=== PATIENT | male | born 1965 | race Caucasian/White ===

== ENCOUNTER 2020-11-12 13:56 | Emergency (ER) | payer OTHER, SELFPAY ==
[2020-11-12 14:20] VITALS: BP 178/108; PULSE 74; RESP 18; TEMP 36.9; O2SAT 97
--- NOTE | 2020-11-12 14:34 | ECG_ITS ---
Measurements Intervals [place] Rate: 64 P: 60 TX: 164 QRS: 72 QRSD: 92 T: 48 QT: 402 QTc: 415 Interpretive Statements SINUS RHYTHM VOLTAGE CRITERIA FOR LVH BASELINE ARTIFACT- I, II, III, AVR, AVL, AVF, V1-V6 BORDERLINE ECG Electronically Signed On 11-12-2020 15:55:21 [facility] by Sawyer Bobo D.O.
--- NOTE | 2020-11-12 14:49 | ED.GENADULT ---
HPI - General Adult General Chief complaint: Dizziness Stated complaint: blood pressure elevated Time Seen by Provider: 11/12/20 13:57 Source: patient Mode of arrival: ambulatory Limitations: no limitations History of Present Illness HPI narrative: 55-year-old male presents to [facility] with complaints of episode of blurred vision, headache, floaters, shortness of breath and elevated blood pressure up to 210/100 last evening. Patient reports he was feeling some better this morning upon awakening but then while at work this afternoon, he started again with a headache, lethargy and generally just does not feel well. Patient is a smoker. Patient reports that 4 years ago he was started on a blood pressure medication but was instructed to stop taking the medication after 3 to 4 weeks. Patient reports that he attempted to call his primary care provider and was able to schedule an appointment in 2 weeks. Patient denies chest pain, fever, body aches, chills, nausea, vomiting or diarrhea. Onset (ago): hour(s) (12) Quality: aching Pain Consistency: constant Relieving factors: none Exacerbating factors: none Treatments prior to arrival: none Related Data Home Medications Medication Instructions Recorded Confirmed No Home Medications 11/12/20 11/12/20 Allergies Allergy/AdvReac Type Severity Reaction Status Date / Time No Known Allergies Allergy Verified 11/12/20 14:41 Review of Systems Constitutional: Constitutional: Denies chills, Denies fever(s) and Denies weakness Eyes: Eyes: Reports change in vision Comments: Blurred vision, floaters ENT: Denies dysphagia, Denies dizziness, Denies epistaxis and Denies sore throat Cardiovascular: Cardiovascular: Denies chest pain, Denies rapid heart rate, Denies radiating jaw, neck or arm pain and Denies slow heart rate Respiratory: Respiratory: Denies cough and Reports dyspnea Gastrointestinal: Gastrointestinal: Denies nausea and Denies vomiting Integumentary/Breasts: Skin/Breast: Denies rash Neurologic: Reports headache(s), Denies numbness and Denies weakness Endocrine: Endocrine: Denies polydipsia and Denies polyuria [facility] Past Medical History Medical History (Updated 11/12/20 @ 14:58 by Sandy Lopez APRN) Knee arthropathy Family History Family History (Updated 11/12/20 @ 14:53 by Sandy Lopez APRN) Mother Breast cancer Diabetes mellitus Social History Social History (Updated 11/12/20 @ 14:53 by Sandy Lopez, [employer]) Smoking status: Current every day smoker Comments At time of signature, I agree with nursing past medical, surgical, social and family history. There is no relevant family history pertinent to the presenting complaint. Exam Const: General: healthy appearing, no acute distress and alert Orientation/consciousness: patient oriented x3 Eyes: Conjunctivae: conjunctivae normal Pupils: Equal, round and reactive pupils present Neck: Neck: normal visual inspection Resp: Effort & Inspection: normal respiratory effort, not labored, not tachypneic and no use of accessory muscles Auscultation: clear to auscultation bilaterally and no wheezes Cardio: Rate: regular rate, not bradycardic and not tachycardic Rhythm: regular rhythm Heart sounds: no murmurs Skin: General skin exam: normal color, no jaundice and no pallor Rashes: no rashes Wounds: no wounds Neuro: General: patient oriented x3, moves all extremities, no meningeal signs and no focal motor deficits Speech: normal speech Gait exam (Neuro): Normal gait present Psych: Appearance: grossly normal Mental Status: mental status grossly normal Affect: normal affect Attitude: cooperative Thought content: Yes Normal thought content present Course Vital Signs Vital signs: Vital Signs Temperature 36.9 C 11/12/20 14:20 Pulse Rate 74 11/12/20 14:20 Respiratory Rate 18 11/12/20 14:20 Blood Pressure 178/108 H 11/12/20 14:20 Pulse Oximetry 97 11/12/20 14:20 Temp
== END 2020-11-12 14:59 | disposition short-term general hospital (02) ==
PROVIDERS: Emergency Provider Nurse Practitioner Family; PCP Family Medicine
DX: I10 Essential (primary) hypertension (principal); F17.200 Nicotine dependence, unspecified, uncomplicated
CPT/HCPCS: 93005; 99203; G0463

== ENCOUNTER 2020-11-12 15:09 | Emergency (ER) | payer OTHER, SELFPAY ==
--- NOTE | ~2020-11-12 | XR_ITS ---
EXAMINATION: XR chest 2V DATE: 11/12/2020 17:10 INDICATION: Hypertension TECHNIQUE: PA and lateral views of the chest are obtained. COMPARISON: None available FINDINGS: The lungs are free of acute opacities. There is no pleural effusion or pneumothorax. The ca rdiomediastinal silhouette is normal. The visualized bones and soft tissues are unremarkable. IMPRESSION: 1. No acute cardiopulmonary abnormality. Reviewed, dictated and finalized at location A. [employer]
--- NOTE | 2020-11-12 15:11 | ECG_ITS ---
Measurements Intervals [place] Rate: 64 P: 45 MD: 165 QRS: 74 QRSD: 98 T: 50 QT: 389 QTc: 403 Interpretive Statements SINUS RHYTHM MINIMAL Q WAVES- INFERIOR LEADS BASELINE ARTIFACT- II, III, AVR, AVL, AVF BORDERLINE ECG Electronically Signed On 11-13-2020 8:18:06 [employer] by Sawyer Bobo D.O.
[2020-11-12 16:40] VITALS: BP 211/88; PULSE 69; RESP 18; TEMP 36.2; O2SAT 98
[2020-11-12 16:56] LABS: Basophils Absolute Auto 0.1 K/mm3 (0.0-0.1); Basophils Percent Auto 0.6 % (0.2-1.2); Eosinophils Absolute Auto 0.2 K/mm3 (0-0.3); Eosinophils Percent Auto 2.3 % (0-4.4); Hematocrit 50.3 % (42.0-52.0); Immature Granulocyte Absolute 0.01 K/mm3 (0.00-0.031); Immature Granulocyte Percent A 0.1 % (0-0.5); Lymphocytes Absolute Auto 3.63 K/mm3 (0.9-3.2); Lymphocytes Percent Auto 47.1 % (18.3-44.2); Mean Corpuscular HGB Conc 33.8 g/dl (32-36); Mean Corpuscular Hemoglobin 29.4 pg (26-34); Mean Platelet Volume 9.4 fl (7.4-10.4); Monocytes Absolute Auto 0.6 K/mm3 (0.1-0.6); Monocytes Percent Auto 7.5 % (2.6-8.5); Neutrophils Absolute Auto 3.3 K/mm3 (1.3-6.7); Neutrophils Percent Auto 42.4 % (45.5-73.1); Platelet Count Result 305 k/mm3 (150-375); Red Blood Count 5.78 M/mm3 (4.6-6.20); Red Cell Distribution Width 12.8 % (11.5-14.5); White Blood Count 7.7 K/mm3 (4.5-10.0)
[2020-11-12 17:06] LABS: INR 0.9; Partial Thromboplastin Time 25.7 SECONDS (22.3-36.8); Prothrombin Time 12.4 Seconds (11.1-14.7)
[2020-11-12 17:08] LABS: Anion Gap 7 mmol/L (8-16); Blood Urea Nitrogen 14 mg/dL (9-20); Calcium 9.7 mg/dL (8.4-10.2); Carbon Dioxide 25 mmol/L (22-30); Chloride 106 mmol/L (98-107); Estimated CRCL calculation 102 ml/min; Estimated Glomerular Filt Rate > 60; Glucose 138 mg/dL (75-110); Potassium 4.2 mmol/L (3.4-5.0); Sodium 138 mmol/L (137-145)
[2020-11-12 17:20] LABS: Troponin I < 0.012 ng/mL (0.000-0.034)
[2020-11-12] MEDS: amLODIPine BESYLATE 5 MG TABLET 10 MG PO (18:40)
[2020-11-12 18:42] VITALS: BP 188/105; PULSE 67; RESP 16; O2SAT 99
--- NOTE | 2020-11-12 18:50 | ED.GENADULT ---
HPI - General Adult General Chief complaint: Recheck/Abnormal Lab/Rx Stated complaint: High Blood Pressure Time Seen by Provider: 11/12/20 17:47 Source: patient Mode of arrival: ambulatory Limitations: no limitations History of Present Illness HPI narrative: 55-year-old male Generally in good health Complains of a 2-day history of mild headaches and feeling just kind of stuffy and funky He had some blurry vision associated with some flashers which he has had before Other than that he is asymptomatic Using his 's blood pressure cuff he checked his blood pressure several times at home and was getting systolics in excess of 200 yesterday and only slightly lower today This was confirmed by a brief stop in urgent care which in turn sent him to the ER He does not take any medications currently and has no other health problems that he knows of He does smoke about 1/2 pack a day Thinks the last time his blood pressure was checked at a doctor's office was 3 or 4 years ago and was 142 or something like that, he was briefly prescribed something at the time but understood it to be a temporary and kind of fell off his radar at some point Related Data Allergies Allergy/AdvReac Type Severity Reaction Status Date / Time No Known Allergies Allergy Verified 11/12/20 14:41 Review of Systems Review of Systems: All systems reviewed & are unremarkable except as noted in HPI and below Constitutional: Constitutional: Denies chills, Denies fatigue, Denies fever(s), Denies headache(s) and Denies weakness Eyes: Eyes: Reports no additional eye complaints, Reports change in vision and Denies photophobia ENT: Denies headache(s), Denies epistaxis, Denies nasal congestion and Denies sore throat Cardiovascular: Cardiovascular: Denies chest pain, Denies leg edema, Denies palpitations and Denies dyspnea Respiratory: Respiratory: Denies cough, Denies dyspnea and Denies wheezing Gastrointestinal: Gastrointestinal: Denies abdominal pain, Denies diarrhea, Denies nausea and Denies vomiting Genitourinary: Genitourinary: Denies hematuria, Denies dysuria and Denies urinary frequency Musculoskeletal: Musculoskeletal: Denies deformity, Denies arthralgias, Denies joint swelling, Denies muscle weakness and Denies numbness Integumentary/Breasts: Skin/Breast: Denies rash and Denies wounds Neurologic: Reports dizziness, Reports headache(s), Denies focal weakness, Denies numbness and Denies weakness Psychiatric: Psychiatric: Reports no additional psychiatric complaints Endocrine: Endocrine: Denies fatigue and Denies palpitations Hematologic/Lymphatic: Hematologic/Lymphatic: Denies easy bleeding and Denies easy bruising Allergic/Immunologic: Allergic/Immunologic: Denies wheezing PMFSH Past Medical History Medical History (Updated 11/12/20 @ 19:07 by Aniceto Young MD) Knee arthropathy Family History Family History (Updated 11/12/20 @ 14:53 by Sandy Lopez APRN) Mother Breast cancer Diabetes mellitus Social History Social History (Updated 11/12/20 @ 14:53 by Sandy Lopez APRN) Smoking status: Current every day smoker Exam Const: General: no acute distress, well developed and awake Nutritional Appearance: well nourished Orientation/consciousness: patient oriented x3 (alert) Limitations: no limitations HENMT: Head: normocephalic and atraumatic Ears: external ears normal General nose exam: No nasal discharge present and no epistaxis Face and sinus: face symmetric Eyes: Conjunctivae: conjunctivae normal Sclera: sclerae normal EOM: EOMs intact bilaterally Other: Sharp discs bilaterally Neck: Neck: normal visual inspection, supple and no JVD Chest: Chest palpation & inspection: deferred Resp: Effort & Inspection: normal respiratory effort Auscultation: clear to auscultation bilaterally, no rales, no rhonchi, no wheezes and other (BS =) Cardio: Rate: regular rate Rhythm: regular rhythm Heart sounds: no goncalves
[2020-11-12 19:04] LABS: Add Urine Microscopic? YES; Amorphous Sediment Urine Moderate; Appearance Urine Cloudy (Clear); Bacteria Urine Trace /hpf; Bilirubin Urine Negative (Negative); Blood Urine Negative (Negative); Color Urine Yellow (Yellow); Glucose Urine UA Negative (Negative); Ketones Urine Negative (Negative); Leukocyte Esterase Ur Negative LEU/UL (Negative); Nitrate Urine Negative (Negative); Protein Urine 1+ mg/dL (Negative); RBC Urine 0-2 /hpf (0-2); Specific Grav Ur 1.018 (1.001-1.035); Squamous Epithelial Cell Urine Rare /hpf (Few)
[2020-11-12 19:27] VITALS: BP 174/95; PULSE 70; RESP 20; O2SAT 98
== END 2020-11-12 19:44 | disposition home or self-care (01) ==
PROVIDERS: Emergency Medicine; Emergency Provider Emergency Medicine; PCP Family Medicine
DX: I10 Essential (primary) hypertension (principal); F17.210 Nicotine dependence, cigarettes, uncomplicated; R94.31 Abnormal electrocardiogram [ECG] [EKG]
CPT/HCPCS: 36415; 71046; 80048; 81001; 84484; 85025; 85610; 85730; 93005; 99284; A9270